=== PATIENT | male | born 1945 | race Caucasian/White ===

== ENCOUNTER 2016-12-15 14:27 | Inpatient (IN) | payer OTHER ==
[2016-12-15 16:12] LABS: % IMMATURE GRANULYOCYTES 0.3 % (0.0-1.1); ABSOLUTE IMMATURE GRANULOCYTES 0.03 10^3/uL (0.00-0.10); ADD DIFF? NO; ADD MORPH? NO; ADD SCAN? NO; ATYPICAL LYMPHOCYTE FLAG 0 (0-99); FRAGMENT RBC FLAG 0 (0-99); HEMOGLOBIN 15.4 g/dL (13.7-17.5); LEFT SHIFT FLG 10 (0-99); LIPEMIA HEMOLYSIS FLAG 90 (0-99); MEAN CELL HEMOGLOBIN 31.7 pg (27.9-34.1); MEAN CELL HEMOGLOBIN CONCENTR. 35.8 g/dL (32.4-36.7); MEAN CELL VOLUME 88.5 fL (81.5-99.8); MEAN PLATELET VOLUME 11.1 fL (8.7-11.7); PLATELET CLUMPS FLAG 0 (0-99); PLATELET COUNT 170 10^3/uL (150-400); RED BLOOD CELL COUNT 4.86 10^6/uL (4.40-6.38); RED CELL DISTRIBUTION WIDTH 12.3 % (11.5-15.2)
[2016-12-15 16:29] LABS: ALANINE AMINOTRANSFERASE 36 IU/L (21-72); ALBUMIN 3.4 g/dL (3.5-5.0); ALKALINE PHOSPHATASE 80 IU/L (38-126); ANION GAP 13 mEq/L (8-16); ASPARTATE AMINOTRANSFERASE 27 IU/L (17-59); BILIRUBIN,TOTAL 1.8 mg/dL (0.1-1.4); CALCIUM 8.9 mg/dL (8.5-10.4); CARBON DIOXIDE 20 mEq/l (22-31); CHLORIDE 99 mEq/L (97-110); CREATININE 1.3 mg/dL (0.7-1.3); GLOMERULAR FILTRATION RATE 55; GLUCOSE 91 mg/dL (70-100); SODIUM 132 mEq/L (134-144)
[2016-12-15] MEDS ORDERED: NS 1,000 ML IV SCH (16:30)
[2016-12-15] MEDS: MEROPENEM 1 GM in NS 100 ML IV SCH (17:34)
[2016-12-15] MEDS ORDERED: D5W 1/2 NS W/ 10 KCl/L 1,000 ML IV SCH (18:15)
[2016-12-15 18:43] LABS: COLOR YELLOW; LEUKOCYTE ESTERASE,URINE NEGATIVE (NEGATIVE); NITRITE,URINE NEGATIVE (NEGATIVE)
[2016-12-15] MEDS: TAMSULOSIN HCL 0.4 MG CAP PO SCH (19:11)
[2016-12-15] MEDS: ACETAMINOPHEN 325 MG TAB PO PRN (19:11)
[2016-12-15 19:12] LABS: MUCUS 4+ /lpf (NONE-1+)
--- NOTE | 2016-12-15 19:16 | GHP ---
[f rep st] HISTORY AND PHYSICAL DATE OF ADMISSION: 12/15/2016 REASON FOR ADMISSION: Fever. HISTORY: The patient is a 71-year-old male, who was doing well in his usual state of health until a bout 3 days ago. He was on a flight from [email or web address], and ended up staying [place] 45 [place] before deboarding. He has had a fever since then, to 103. He presente d for evaluation in the office, and was found to look quite ill with red cheeks, sallow eyes, and a fever of 103. He is being admitted for further evaluation. PAST MEDICAL HISTORY: Significant for BPH and elevated PSA. He has otherwise been healthy. REVIEW OF SYSTEMS: He denies cough or congestion. He has frequent urination of fairly small volume urine on each urination. He has some mild abdominal discomfort around the bladder. He has no skin changes, although he does suffer from rosacea. He does have a history of mild tremor, which has be en substantially worse lately. He has taken Tylenol at night and has had sweats, and temperatures r eturned to normal, and he has felt substantially better. PHYSICAL EXAMINATION: VITAL SIGNS: Blood pressure 168/84, pulse is 103, oxygen saturation 91% on r oom air. Heart rate is 96. HEENT: Pupils are equally reactive to light. He has some flushing ove r his cheeks bilaterally without tenderness. HEART: Regular rate and rhythm without significant mu rmur. LUNGS: Reveal mild rales in the left base. ABDOMEN: Nontender. EXTREMITIES: He has no pe ripheral edema. Peripheral pulses are palpable in extremities. Moves all extremities well. GENERA L: He is alert, oriented, and appropriate. LABORATORY DATA: Review of blood work shows an elevated white blood cell count at 11 with a left sh ift. Chemistry shows sodium 132, potassium 4.0. Kidney function is normal. BUN 20, creatinine 1.3 . Liver functions were essentially normal with a total bilirubin of 1.8, AST 27, ALT 36, alkaline p hosphatase 80. His albumin is low at 3.4. His prostate specific antigen was elevated at 8.49. His lactate level was normal at 1.1. IMAGING: Chest x-ray reveals a patchy left lower lobe infiltrate. IMPRESSION: Probable pneumonia. With frequent urination. I had concerns about urosepsis or prosta te infection; however, his PSA is stable, and his initial urinalysis looked normal. He is currently on meropenem and azithromycin. We will leave him on his antibiotics pending results of cultures an d how he does clinically overnight. /[id number]/MODL
[2016-12-15] MEDS ORDERED: LIDOCAINE 2% JELLY 20 ML (UROJECT) UR ONE (21:43)
[2016-12-16] MEDS: ACETAMINOPHEN 325 MG TAB PO PRN ×4 (01:02→23:56)
[2016-12-16] MEDS ORDERED: DOXAZOSIN MESYLATE 1 MG TAB PO ONE (01:45)
[2016-12-16] MEDS: MEROPENEM 1 GM in NS 100 ML IV SCH ×2 (01:50→09:18)
[2016-12-16] MEDS ORDERED: AZITHROMYCIN IV 500 MG in D5W 250 ML IV SCH (09:00)
[2016-12-16] MEDS: TAMSULOSIN HCL 0.4 MG CAP PO SCH (09:18)
[2016-12-16] MEDS: AZITHROMYCIN 250 MG TAB PO SCH (12:17)
--- NOTE | 2016-12-16 13:08 | SOAPPROG ---
SOAP Progress Note Assessment/Plan: Assessment:LLL pneumonia. reduced concern for urinary infection., BPH with urinary outflow issues. Plan: Change antibiotic to oral azithromycin and IV ceftriaxone. Ambulate. Stop flomax and increase cardura as it has resulted in improved urine flow. 12/16/16 13:06 Subjective: Feeling some better. Still with frequency of urination however has been able to urinate a large volume total of urine this morning. Objective: Vital Signs Temp Pulse Resp BP Pulse Ox 102.5 F H 83 16 125/65 H 92 12/16/16 11:29 12/16/16 11:06 12/16/16 11:06 12/16/16 11:06 12/16/16 11:06 Laboratory Results 12/15/16 16:04 12/15/16 16:04 12/15/16 12/16/16 12/17/16 05:59 05:59 05:59 Intake Total 544 120 Output Total 590 300 Balance -46 -180 Temp up and down. Cultures still pending. Lungs with L basalar tubular breath sounds and rales. Appetite OK. ICD10 Worksheet Patient Problems: Problems Problem Status Onset Pneumonia Acute - ICD10 Problem Qualifiers (1) Pneumonia Qualifiers: Pneumonia type: P Aspiration pneumonia type: A Laterality: L Lung location: L
[2016-12-16] MEDS: DOXAZOSIN MESYLATE 1 MG TAB PO SCH (14:29)
[2016-12-17] MEDS: DOXAZOSIN MESYLATE 1 MG TAB PO SCH (08:43)
[2016-12-17] MEDS: AZITHROMYCIN 250 MG TAB PO SCH (08:43)
[2016-12-17 09:13] VITALS: BP 121/72; PULSE 75; RESP 16; TEMP 99.4; O2SAT 90
[2016-12-18] MEDS ORDERED: FINASTERIDE 5 MG TAB PO SCH (09:00)
[2016-12-18] MEDS ORDERED: CEFUROXIME AXETIL 250 MG TAB PO SCH ×2 (09:00)
[2016-12-18] MEDS ORDERED: DOXAZOSIN MESYLATE 1 MG TAB PO SCH (09:00)
--- NOTE | 2016-12-18 09:13 | GDS ---
[f rep st] DISCHARGE SUMMARY ADMISSION DIAGNOSES: 1. Pneumonia. 2. Possible urinary infection. DISCHARGE DIAGNOSES: 1. Pneumonia. 2. Benign prostatic hypertrophy without evidence of urinary infection. PROCEDURES: Blood cultures, urine cultures, IV antibiotics. COMPLICATIONS: None. HOSPITAL COURSE: Patient is a 71-year-old male, who has a history of BPH with urinary retention. Brie pierre developed a fever to 103 after sitting in an airplane on the tarmac for 45 minutes in [place] in [place] hot weather. He continued to feel sick after that. Presented to my office and was admitted for further evaluation and treatment. Urinalysis was obtained in the office, which did not show signs of infection. Although he did have frequency of urination and a very small quantity of urination wi th each attempt. In the hospital he was placed on IV hydration, IV antibiotics initially consisting of meropenem and azithromycin. Chest x-ray showed minimal left lower lobe infiltrates. Urinalysis did not grow any bacteria. The meropenem was then changed to ceftriaxone. He has received a total of 1500 mg of azithromycin. His fever defervesced. He is feeling substantially better. He is eat ing and drinking well. In the course of the hospitalization, because of difficult urination, he was initially placed on Flomax. This was not particularly effective. Cardura was initially added and i ncreased to 2 mg daily. This allowed him to pee much more freely. We discussed the possibility of adding finasteride. He has an appointment with Dr. Robins on the . As he continued to do better, the IV was discontinued, switched to oral medications, and discharged. MEDICATIONS AT TIME OF DISCHARGE: Ceftin 500 mg b.i.d., Cardura 2 mg daily. He was given a prescri ption for finasteride 5 mg daily, which he may or may not choose to fill between now and his visit w hebert Robins. He will also use Tylenol as needed for fever. He will call immediately if he has an y issues. We will follow up when the finals of his culture results are available. /[id number]/MODL
== END 2016-12-17 12:41 | disposition home or self-care (01) | DRG 195 ==
LOC: F1N 15:00 → OBSVTOIN 15:00
PROVIDERS: ADMIT Internal Medicine; ATTEND Internal Medicine
DX: J18.9 Pneumonia, unspecified organism (principal); N40.1 Benign prostatic hyperplasia with lower urinary tract symptoms; R33.8 Other retention of urine
CPT/HCPCS: J0456; J0696; J2185